=== PATIENT | male | born 1985 | race Hispanic/Latino ===

== ENCOUNTER 2024-05-12 19:00 | Emergency (ER) | payer BC ==
[~2024-05-12] VITALS: Ht 172.7 cm; Wt 127.0 kg
[2024-05-12 19:23] LABS: BASOPHILS # (AUTO) 0.05 K/uL (0.00-0.20); BASOPHILS % (AUTO) 0.5 % (0.0-5.0); EOSINOPHILS # (AUTO) 0.25 K/uL (0.00-0.70); EOSINOPHILS % (AUTO) 2.4 % (0.0-8.0); HEMATOCRIT 37.8 % (42-54); IMMATURE GRANULOCYTE ABSOLUTE 0.07 K/uL (0-1); LYMPHOCYTES # (AUTO) 1.8 K/uL (1.0-4.8); LYMPHOCYTES % (AUTO) 17.7 % (21.0-51.0); MEAN CORPUSCULAR HGB CONC 33.9 g/dL (32.0-36.0); MEAN CORPUSCULAR VOLUME 85.5 fL (79-99); MONOCYTES # (AUTO) 0.5 K/uL (0.1-1.0); NEUTROPHILS # (AUTO) 7.6 K/uL (1.8-7.7); NEUTROPHILS % (AUTO) 73.7 % (40.0-77.0); PLATELET COUNT (AUTO) 270 K/uL (130-400); RED BLOOD CELL COUNT(AUTO) 4.42 MIL/uL (4.50-6.20); RED CELL DISTRIBUTION WIDTH 12.9 % (11.0-15.5); WHITE BLOOD COUNT (AUTO) 10.3 K/uL (4.8-10.8)
[2024-05-12 19:33] LABS: CREATININE 0.9 mg/dL (0.5-1.3); POTASSIUM 4.1 mmol/L (3.5-5.1)
[2024-05-12] MEDS: 0.9%NACL 1000ML 1,000 ML IV ONE ×2 (19:45→20:56)
[2024-05-12 19:53] LABS: MAGNESIUM 2.2 mg/dL (1.80-2.40)
[2024-05-12] MEDS: ONDANSETRON 4MG INJ IVP ONE (20:32)
[2024-05-12] MEDS: mecliZINE HCL 25 MG TABLET PO ONE (20:57)
[2024-05-12] MEDS: SOLU-MEDROL 125MG VIAL IVP ONE (20:57)
[2024-05-12] MEDS ORDERED: METH4TAB3 PO (21:38)
[2024-05-12] MEDS ORDERED: ONDA-243 PO (21:38)
[2024-05-12] MEDS ORDERED: MECL-302 PO (21:38)
[2024-05-12 21:43] VITALS: BP 127/78; PULSE 60; RESP 18; O2SAT 99
== END 2024-05-12 21:47 | disposition home or self-care (01) ==
LOC: EDH 19:00
DX: H81.13 Benign paroxysmal vertigo, bilateral (principal); R11.2 Nausea with vomiting, unspecified; R51.9 Headache, unspecified; H93.13 Tinnitus, bilateral
CPT/HCPCS: 99284; 96374; 70450; 96375; 83735; 84484; 80048; 85025; 36415; 93005; J7030 ×2; J2919; J2405

== ENCOUNTER 2025-09-22 16:13 | Emergency (ER) | payer BC ==
[~2025-09-22] VITALS: Ht 172.7 cm; Wt 117.9 kg
[~2025-09-22 16:13] MED LIST: MECL-302 PO; METH4TAB3 PO; ONDA-243 PO
--- NOTE | 2025-09-22 16:21 | NUR ---
REFER TO TRAUMA FLOW SHEET
[2025-09-22 16:25] VITALS: BP 156/97; PULSE 82; RESP 14; TEMP 97.9; O2SAT 100
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
[2025-09-22] MEDS: LACTATED RINGERS 1000ML 1,000 ML IV ONE (16:32)
[2025-09-22 16:37] LABS: IMMATURE GRANULOCYTE ABSOLUTE 0.03 K/uL (0-1); NUCLEATED RED BLOOD CELLS 0.0 % (0.0-0.19); PLATELET COUNT (AUTO) 272 K/uL (130-400); RED BLOOD CELL COUNT(AUTO) 4.82 MIL/uL (4.50-6.20); RED CELL DISTRIBUTION WIDTH 13.7 % (11.0-15.5); WHITE BLOOD COUNT (AUTO) 10.1 K/uL (4.8-10.8)
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
[2025-09-22 16:47] LABS: INR 0.99 (0.85-1.15)
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
[2025-09-22 16:50] LABS: CREATININE 1.0 mg/dL (0.5-1.3); GLOMERULAR FILTR. RATE CALC 98.0 mL/min (>90); GLUCOSE,RANDOM 99.0 mg/dL (70-105); SODIUM SERUM 138.0 mmol/L (136-145); UREA NITROGEN, BLOOD 12.0 mg/dL (7-18)
--- NOTE | 2025-09-22 17:19 | NUR ---
STEC ARRIVAL TIME
== END 2025-09-22 17:32 | disposition short-term general hospital (02) ==
LOC: EDH 16:13
DX: T22.20XA Burn of second degree of shoulder and upper limb, except wrist and hand, unspecified site, initial encounter (principal); T20.10XA Burn of first degree of head, face, and neck, unspecified site, initial encounter; T22.10XA Burn of first degree of shoulder and upper limb, except wrist and hand, unspecified site, initial encounter; T24.102A Burn of first degree of unspecified site of left lower limb, except ankle and foot, initial encounter; T24.101A Burn of first degree of unspecified site of right lower limb, except ankle and foot, initial encounter; Z90.49 Acquired absence of other specified parts of digestive tract; X08.8XXA Exposure to other specified smoke, fire and flames, initial encounter; Y93.89 Activity, other specified; Y92.89 Other specified places as the place of occurrence of the external cause; Y99.8 Other external cause status
CPT/HCPCS: 99285; 96365; 96375; 96361; 84484; 80048; 85025; 85610; 85730; 83605; 36415; 90714; 90471; 84145; J7120; J0690 ×2; J2405; J2270